=== PATIENT | male | born 1995 | race Caucasian/White ===

== ENCOUNTER 2016-08-12 17:47 | Inpatient (IN) | payer OTHER ==
[~2016-08-12] VITALS: Ht 180.3 cm; Wt 73.9 kg
[2016-08-12] MEDS ORDERED: LOPERAMIDE HCL 2 MG CAPSULE PO PRN ×2 (19:45)
[2016-08-12] MEDS ORDERED: TRAZODONE 50 MG TABLET PO PRN (19:45)
[2016-08-12] MEDS ORDERED: MAGNESIUM HYDROXIDE 30 ML LIQUID UDC PO PRN (19:45)
[2016-08-12] MEDS ORDERED: HYDROXYZINE PAMOATE 25 MG CAPSULE PO PRN (19:45)
[2016-08-12] MEDS ORDERED: DICYCLOMINE HCL 20 MG TABLET PO PRN (19:45)
[2016-08-12] MEDS ORDERED: ONDANSETRON 4 MG/2 ML VIAL IM PRN (19:45)
[2016-08-12] MEDS ORDERED: BUPRENORPHINE HCL 2 MG TAB.SUBL SL PRN (19:45)
[2016-08-12] MEDS ORDERED: MAG HYDROX/AL HYDROX/SIMETH 30 ML LIQUID UDC PO PRN (19:45)
[2016-08-12] MEDS ORDERED: MIRALAX 17 GM POWD.PACK PO PRN (19:45)
[2016-08-12] MEDS ORDERED: ACETAMINOPHEN 325 MG TABLET PO PRN (19:45)
[2016-08-12] MEDS ORDERED: METHOCARBAMOL 750 MG TABLET PO PRN (19:45)
--- NOTE | 2016-08-12 19:45 | NUR ---
Pre-Admission Note Explained unit protocols regarding medications and vital signs Q4H. Pt verbalizes understanding. [facility]/t Opiate dependence. BP 121/76, pulse 69, respirations 16, Spo2 97%, temp 98.1, no reports of pain 0/10, weight 163, height 5'11". Will continue with assessment upon arrival to the unit.
[2016-08-12 20:00] VITALS: BP 121/76
--- NOTE | 2016-08-12 20:00 | NUR ---
Admission Note Pt is a 21 year old male admitted to [facility] on 08/12/2016 for Opiate dependence, arrived on the unit at 1956, accompanied by SHOW OPERATIONS SUPERVISOR. Pt reports allergies to cat dander, denies seizure history. Pt was able to provide urine drug screen. Upon admission COWS 6, BP 121/76, pulse 69, respirations 16, Spo2 97%, temp 98.1, no reports of pain 0/10, weight 163, height 5'11". Pt reports his primary care provider is in [place], Dr. Sesay. Pt reports he is a smoker, smokes 1 pack of cigarettes/daily. Pt denies being hospitalized within the past 30 days. Substance abuse History is as follows: 1. Oxycodone 30mg of 8-10 pills/daily, last intake on 08/12/2016 of 60mg, at this rate for the past month. Pt reports he relapsed 1 months ago, Pt reports longest sobriety period was for 6 months from December 2015 to July 2016. Pt trigger for relapse is d/t "my anxiety and I had an argument with my girlfriend". Pt reports he has been admitted to 1 detox before, [facility], December 2015 for 2 months. When pt does not use, he reports s/s of "Anxiety, abdominal cramping, n/v, hot/cold chills, restlessness". PMH: Anxiety. Pt did not bring any medications from home, however reports taking Gabapentin 400mg and Trazodone 50mg at home, last taken about 2 months ago, as reported by pt. Upon assessment, pt presents with anxiety, reports mild body/joint aches, reports chills, teary eyes/runny nose noted, denies SOB/chest pain, face flushed, skin - clammy/sweaty, Pt denies SI/HI. Educational information provided and left at beside, pt oriented to room and encouraged to notify staff with any concerns. Safety measures in place, call light within reach, side rails up x2, bed locked and in low position. Will continue to monitor.
[2016-08-12 20:37] LABS: *AMPHETAMINE, URINE NEGATIVE (NEGATIVE); *BARBITURATE, URINE NEGATIVE (NEGATIVE); *CANNABINOID, URINE NEGATIVE (NEGATIVE); *COCCAINE, URINE NEGATIVE (NEGATIVE); *OPIATE, URINE POSITIVE (NEGATIVE); *PHENCYCLIDINE SCREEN,URINE NEGATIVE (NEGATIVE)
[2016-08-12] MEDS: CLONIDINE HCL 0.1 MG TABLET PO PRN (23:05)
--- NOTE | 2016-08-12 23:05 | NUR ---
PRN Administration Pt reported feeling anxious, chills throughout body, body/joint aches, runny nose/teary eyes, difficulty sleeping. Clonidine 0.1mg PRN and Trazodone 50mg PRN administered. Safety measures in place. Will continue to monitor.
[2016-08-12 23:09] LABS: ALANINE AMINOTRANSFERASE 17 U/L (16-63); ALKALINE PHOSPHATASE 44 U/L (50-136); ASPARTATE AMINOTRANSFERASE 17 U/L (15-37); BILIRUBIN,TOTAL 0.4 mg/dL (0.2-1.0); CARBON DIOXIDE 29 mmol/L (21-32); CHLORIDE 105 mmol/L (98-107); CREATININE 1.2 mg/dL (0.6-1.3); ETHANOL < 3 MG/DL (0-0); GLUCOSE 130 mg/dL (74-106); MAGNESIUM 2.1 mg/dL (1.8-2.4); TOTAL PROTEIN, SERUM 7.2 g/dL (6.4-8.2); UREA NITROGEN, BLOOD 19 mg/dL (7-18)
[2016-08-12] MEDS ORDERED: CLONIDINE HCL 0.1 MG TABLET ONE (23:09)
[2016-08-12] MEDS ORDERED: TRAZODONE 50 MG TABLET ONE (23:09)
[2016-08-12 23:10] LABS: BASOPHILS % (AUTO) 0.5 % (0.0-2.0); EOSINOPHILS # (AUTO) 0.3 K/uL (0.0-0.7); EOSINOPHILS % (AUTO) 3.5 % (0.0-7.0); HEMATOCRIT 42.3 % (40-50); HEMOGLOBIN 14.7 G/DL (14.0-18.0); LYMPHOCYTES # (AUTO) 2.6 K/UL (0.8-4.8); LYMPHOCYTES % (AUTO) 36.3 % (20.5-51.5); MEAN CORPUSCULAR HEMOGLOBIN 31.4 UUG (27.0-31.0); MEAN CORPUSCULAR HGB CONC 35 g/dL (32.0-37.0); MEAN CORPUSCULAR VOLUME 90.1 FL (82.0-92.0); MONOCYTES # (AUTO) 0.5 K/UL (0.1-1.30); MONOCYTES % (AUTO) 6.6 % (0.0-11.0); NEUTROPHILS # (AUTO) 3.8 K/UL (1.8-8.9); NEUTROPHILS % (AUTO) 53.1 % (38.5-71.5); PLATELET COUNT (AUTO) 224 K/UL (150-450); RED BLOOD CELL COUNT(AUTO) 4.69 MIL/UL (4.7-6.1); WHITE BLOOD COUNT (AUTO) 7.2 K/UL (4.0-11.2)
[2016-08-12 23:15] LABS: THYROID STIMULATING HORMONE 2.156 mIU/mL (0.358-3.740)
[2016-08-13] VITALS: BP 112/64
--- NOTE | 2016-08-13 | NUR ---
PRN Reassessment/Vital Signs BP 112/64, pulse 73, respirations 14, Spo2 96%, temp 97.9, no pain 0/10. COWS deferred d/t pt sleeping - to assess while pt is awake as ordered. Pt is sleeping, respirations even/unlabored, no s/s of acute distress. Safety measures in place. Will continue to monitor.
[2016-08-13] MEDS ORDERED: GABA-536 PO (01:32)
[2016-08-13] MEDS ORDERED: TRAZ-144 PO (01:32)
[2016-08-13 04:00] VITALS: BP 98/54
--- NOTE | 2016-08-13 04:00 | NUR ---
Vital Signs BP 98/54, pulse 66, respiration 14, SpO2 97%, temp 97.9, no pain 0/10 COWS deferred d/t pt sleeping - to assess while pt is awake as ordered. Safety measures in place. Will continue to monitor.
--- NOTE | 2016-08-13 07:00 | NUR ---
End of Shift Pt is a 21 year old male admitted for Opiate dependence, placed on 5 day Subutex taper. Pt reported using Oxycodone 30mg of 8-10 pills/daily, last intake on 08/12/2016 of 60mg, at this rate for the past month. PMH: Anxiety. Pt reports allergies to cat dander, regular diet, fall precautions and full code. During shift, pt presented with anxiety, chills throughout body, body/joint aches, runny nose/teary eyes, difficulty sleeping - Clonidine 0.1mg PRN and Trazodone 50mg PRN administered. COWS 6, Pt started Subutex taper today. Pt slept for 7 hours, intake of 1182 ml PO and voids x1. Safety measures in place, call light within reach, side rails up x2, bed locked and in low position. Endorsed to day shift nurse.
--- NOTE | 2016-08-13 07:58 | NUR ---
START OF SHIFT Received patient in bed AOx4. Patient states he feels a little better, was able to sleep last night but is still tired. Patient is to start 5 day Subutex taper this morning. PRN Trazodone and Clonidine given per night nurse.COWS 6 per night nurse. Encouraged patient to increase fluid intake. Encouraged patient to notify RN if S/S of W/D worsen. Encouraged attendance of groups and activities. Will provide safe and supportive environment. Will monitor.
[2016-08-13 08:00] VITALS: BP 99/61
[2016-08-13] MEDS ORDERED: TUBERCULIN,PURIF.PROT.DERIV. 5 TU/0.1 ML TEST ID ONE (09:00)
[2016-08-13] MEDS: MULTIVITAMINS,THERAPEUTIC TABLET PO SCH (09:07)
[2016-08-13] MEDS: GABAPENTIN 400 MG CAPSULE PO SCH ×3 (09:07→16:19)
[2016-08-13] MEDS: DOCUSATE SODIUM 250 MG CAPSULE PO SCH (09:07)
[2016-08-13] MEDS: BUPRENORPHINE HCL 2 MG TAB.SUBL SL SCH ×4 (09:09→20:55)
[2016-08-13] MEDS ORDERED: TRAZODONE 50 MG TABLET PO PRN (10:30)
[2016-08-13] MEDS: CLONIDINE HCL 0.1 MG TABLET PO PRN (11:18)
--- NOTE | 2016-08-13 11:19 | NUR ---
PRN MEDICATIONS Clonidine given per Dr. Kohli for patient c/o of hot/cold sweats and anxiousness. Vital signs stable. Will reassess
[2016-08-13 12:00] VITALS: BP 122/60
--- NOTE | 2016-08-13 12:00 | NUR ---
PRN REASSESSMENT Patient reports a decrease in anxiety. Will continue to monitor.
[2016-08-13 16:00] VITALS: BP 109/69
--- NOTE | 2016-08-13 18:36 | NUR ---
END OF SHIFT Patient started on 5 day Subutex taper this shift and tolerating well. Patient socialized self in room most of shift resting in bed. PRN Clonidine given this morning for anxiety. Last COWS 7. Patient noted with mild anxiety, stomach cramps, and hot/cold flashes. All needs have been met. Safety measures in place. Will pass shift report to oncoming nurse.
[2016-08-13] MEDS ORDERED: BUPRENORPHINE HCL 2 MG TAB.SUBL SL ONE (18:45)
--- NOTE | 2016-08-13 19:05 | NUR ---
Start of shift note Received report from day shift nurse. Pt is a 21 yo male, A+Ox4, presenting to [facility] for Opiate dependence. Pt has Allergies to Cats, is on Full Code status, and on Regular diet. Pt is on Fall precautions. Pt has HX of Anxiety. Pt is on 5 day Ativan taper, tolerated well. No s/s of distress noted at this time. Respirations even and unlabored. Will continue to monitor. Addendum: 08/14/16 at 0703 by JOSEPHINE GARCIA LVN Correction, 5 day SUBUTEX taper
[2016-08-13 20:56] VITALS: BP 115/61
[2016-08-13] MEDS: IBUPROFEN 600 MG TABLET PO PRN (21:21)
--- NOTE | 2016-08-13 21:21 | NUR ---
PRN Trazodone and Motrin Pt c/o inability to sleep and headache and requested for PRN Trazodone and Motrin. Medications given and tolerated well. Will reassess within 1 HR. Will continue to monitor.
--- NOTE | 2016-08-13 22:15 | NUR ---
PRN Trazodone and Motrin Reassessment Medications effective. No s/s of ASE/distress noted at this time. Patient is resting well in bed. respirations even and unlabored. Will continue to monitor.
[2016-08-14 00:16] VITALS: BP 103/48
[2016-08-14 04:14] VITALS: BP 96/57
--- NOTE | 2016-08-14 06:51 | NUR ---
End of shift note Pt is a 21 yo male, A+Ox4, presenting to [facility] for Opiate dependence. Pt has Allergies to Cats, is on Full Code status, and on Regular diet. Pt is on Fall precautions. Pt has HX of Anxiety. Pt is on 5 day Ativan taper, tolerated well. Pt was given PRN Trazodone and Motrin @2120. Pt slept for a total of 8 HRS. Last COWS: 2 @0400. No s/s of distress noted at this time. Respirations even and unlabored. Will endorse to day shift nurse. Addendum: 08/14/16 at 0703 by JOSEPHINE GARCIA LVN Correction, 5 day SUBUTEX taper
--- NOTE | 2016-08-14 07:00 | NUR ---
Start of Shift Notes: Patient received in his room. Alert and oriented x 4. Able to make needs known. Respirations even and unlabored. No SOB noted. Skin warm and dry to touch. Abdomen soft and non-distended. BS (+) in all 4 quadrants. No complains of nausea, vomiting, diarrhea or constipation noted. No complains of abdominal discomfort noted. Voids independently. Ambulatory ad ha with steady gait. Patient is a 21 year old male admitted for opiate dependence who was placed on a 5-day Subutex taper as ordered. No adverse reactions noted. Has past medical hx of anxiety. NKA. Full code. Regular diet. Educated patient on his current medication regimen and his current plan of care. Slept for 8 hours. Will continue to monitor closely.
[2016-08-14 08:00] VITALS: BP 96/57
[2016-08-14] MEDS: DOCUSATE SODIUM 250 MG CAPSULE PO SCH (08:57)
[2016-08-14] MEDS: BUPRENORPHINE HCL 2 MG TAB.SUBL SL SCH ×3 (08:57→21:19)
[2016-08-14] MEDS: GABAPENTIN 400 MG CAPSULE PO SCH ×2 (08:57→12:00)
[2016-08-14] MEDS: MULTIVITAMINS,THERAPEUTIC TABLET PO SCH (08:57)
[2016-08-14 12:00] VITALS: BP 119/84
--- NOTE | 2016-08-14 12:19 | NUR ---
Psych MD Visit: Patient was seen and examined by Dr. Leone with complains of difficulty staying asleep and that Trazodone 50 mg is not enough[address] Dr. Leone is in to enter orders. Orders noted and carried out. Patient was informed.
[2016-08-14] MEDS ORDERED: TRAZODONE 50 MG TABLET PO PRN (12:45)
--- NOTE | 2016-08-14 13:00 | NUR ---
Mid Shift Notes: Patient is in his room. Eating lunch. COWS 5. Will continue to monitor closely.
[2016-08-14 14:12] LABS: HEPATITIS B SURFACE AG Negative (Negative)
[2016-08-14 16:00] VITALS: BP 135/64
--- NOTE | 2016-08-14 18:52 | NUR ---
End of Shift Notes: Patient is a 21 year old male admitted for opiate dependence who was placed on a 5-day Subutex taper as ordered. No adverse reactions noted. Prior to admission, patient was using 8-10 tabs of 30 mg of Oxycodone. VS monitored closely. No significant abnormalities noted. Withdrawal symptoms were closely monitored. Initial COWS 7. Patient presented with chills, hot flashes, restlessness, nausea, anxiety and agitation. Last COWS 3. Per patient, Subutex has been helping him with his withdrawal symptoms. Patient was unable to participate in group and in activities due to his withdrawal symptoms. Oral fluids encouraged. All needs met and attended. Will continue to monitor closely.
--- NOTE | 2016-08-14 19:15 | NUR ---
Start of shift note Received report from day shift nurse. Pt is a 21 yo male, A+Ox4, presenting to [facility] for Opiate dependence. Pt has Allergies to Cats, is on Full Code status, and on Regular diet. Pt is on Fall precautions. Pt has HX of Anxiety. Pt is on 5 day Subutex taper, tolerated well. No s/s of distress noted at this time. Respirations even and unlabored. Will continue to monitor.
[2016-08-14 20:15] VITALS: BP 124/75
[2016-08-14] MEDS: DICYCLOMINE HCL 20 MG TABLET PO SCH (21:19)
[2016-08-14] MEDS: GABAPENTIN 300 MG CAPSULE PO SCH (21:19)
[2016-08-14] MEDS: TRAZODONE 100 MG TABLET PO PRN (21:19)
[2016-08-14] MEDS: BACLOFEN 10 MG TABLET PO SCH (21:19)
--- NOTE | 2016-08-14 21:22 | NUR ---
PRN Trazodone Pt c/o inability to sleep and requested for PRN Trazodone. Medication given and tolerated well. Will reassess within 1 HR. Will continue to monitor.
--- NOTE | 2016-08-14 22:20 | NUR ---
PRN Trazodone Reassessment Medication effective. Pt is resting well in bed. No s/s of ASE/distress noted at this time. Respirations even and unlabored. Will continue to monitor.
[2016-08-15 00:12] VITALS: BP 111/51
[2016-08-15 04:32] VITALS: BP 104/65
--- NOTE | 2016-08-15 06:44 | NUR ---
End of shift note Pt is a 21 yo male, A+Ox4, presenting to [facility] for Opiate dependence. Pt has Allergies to Cats, is on Full Code status, and on Regular diet. Pt is on Fall precautions. Pt has HX of Anxiety. Pt is on 5 day Subutex taper, tolerated well. Pt was given PRN Trazodone @2121. Pt slept for a total of 6 HRS. Last COWS: 1 @0400. No s/s of distress noted at this time. Respirations even and unlabored. Will endorse to day shift nurse.
[2016-08-15 08:00] VITALS: BP 106/62
--- NOTE | 2016-08-15 08:00 | NUR ---
START OF SHIFT NOTE Received pt alert awake oriented x4 admitted for Opiate dependence. Pt is cont with 5 days Subutex taper. PRN Trazodone given per night nurse. Last COWS-1 per night nurse. Pt slept for 6 hours. Educated regarding plan of care and medication regimen for the day with good verbal understanding. Encouraged pt to notify nurse if s/s of withdrawal worsen. Safety measures in place. call light kept with in reach, will continue to monitor closely.
[2016-08-15] MEDS: DICYCLOMINE HCL 20 MG TABLET PO SCH ×3 (08:13→22:24)
[2016-08-15] MEDS: BACLOFEN 10 MG TABLET PO SCH ×2 (08:13→14:39)
[2016-08-15] MEDS: DOCUSATE SODIUM 250 MG CAPSULE PO SCH (08:13)
[2016-08-15] MEDS: GABAPENTIN 300 MG CAPSULE PO SCH ×3 (08:13→22:24)
[2016-08-15] MEDS: MULTIVITAMINS,THERAPEUTIC TABLET PO SCH (08:13)
[2016-08-15] MEDS ORDERED: BUPRENORPHINE HCL 2 MG TAB.SUBL SL SCH (09:00)
--- NOTE | 2016-08-15 10:28 | NUR ---
Clinician encouraged client to attend groups today. Client declined and stated he just wants to drink a lot of fluids today.
[2016-08-15 12:00] VITALS: BP 102/60
[2016-08-15] MEDS ORDERED: BENZOCAINE/MENTH/CETYLPYRD LOZENGE MM PRN (12:45)
[2016-08-15] MEDS: BUPRENORPHINE HCL 2 MG TAB.SUBL SL SCH ×2 (14:39→22:25)
[2016-08-15 16:00] VITALS: BP 117/70
[2016-08-15] MEDS: ONDANSETRON ODT 4 MG TAB.RAPDIS SL PRN (17:08)
[2016-08-15] MEDS: IBUPROFEN 600 MG TABLET PO PRN (17:08)
--- NOTE | 2016-08-15 17:08 | NUR ---
PRN ZOFRAN/MOTRIN Patient c/o nausea not emesis and headache 06/11. Medicated patient with Zofran 4mg SL, and Motrin 600mg as ordered. Will cont to monitor and reassess.
--- NOTE | 2016-08-15 17:38 | NUR ---
ZOFRAN REASSESSMENT Patient reported medication effective, nausea improved. Will cont to monitor.
--- NOTE | 2016-08-15 18:08 | NUR ---
MOTRIN REASSESSMENT Patient reported headache decreased to 1/10. Motrin 600mg effective. Will cont to monitor.
--- NOTE | 2016-08-15 19:11 | NUR ---
END OF SHIFT NOTE Patient cont on 5 days Subutex taper tolerating well. Patient presents with nausea, and headache. patient given PRN Zofran/Motrin noted to be effective. Patient attend some groups and activities. Vital signs remained stable. COWS-3. Encouraged Po fluids as tolerated. All needs attended. All safety measures in place. Bed locked and in lowest position with call bishop within reach. Pt endorse to night nurse.
[2016-08-15 20:19] VITALS: BP 120/75
[2016-08-15] MEDS ORDERED: BACLOFEN 10 MG TABLET PO SCH (21:00)
[2016-08-15] MEDS: BACLOFEN 20 MG TABLET PO SCH (22:24)
[2016-08-15] MEDS: TRAZODONE 100 MG TABLET PO PRN (22:24)
--- NOTE | 2016-08-15 22:27 | NUR ---
PRN Trazodone Pt c/o inability to sleep and requested for PRN Trazodone. Medication given and tolerated well. Will reassess within 1 HR. Will continue to monitor.
--- NOTE | 2016-08-15 23:21 | NUR ---
PRN Trazodone Reassessment Medication effective. Pt is resting well in bed. No s/s of distress noted at this time. Respirations even and unlabored. Will continue to monitor.
[2016-08-16 00:19] VITALS: BP 92/46
[2016-08-16 04:40] VITALS: BP 92/46
--- NOTE | 2016-08-16 06:52 | NUR ---
End of shift note Pt is a 21 yo male, A+Ox4, presenting to [facility] for Opiate dependence. Pt has Allergies to Cats, is on Full Code status, and on Regular diet. Pt is on Fall precautions. Pt has HX of Anxiety. Pt is on 5 day Subutex taper, tolerated well. Pt was given PRN Trazodone @2227. Pt slept for a total of 7 HRS. Last COWS: 1 @0400. No s/s of distress noted at this time. Respirations even and unlabored. Will endorse to day shift nurse.
--- NOTE | 2016-08-16 07:30 | NUR ---
START OF SHIFT Received patient in bed AOx4. Patient states he feels pretty much better now, he just is still a little tired. He reports dry mouth. Patient continues on 5 day Subutex taper this morning. PRN Trazodone given per night nurse and patient was able to sleep 7 hours. Last COWS 1 per night nurse. Encouraged patient to increase fluid intake. Encouraged patient to notify RN if S/S of W/D worsen. Encouraged attendance of groups and activities. Will provide safe and supportive environment. Will monitor.
[2016-08-16 08:00] VITALS: BP 110/63
[2016-08-16] MEDS: DOCUSATE SODIUM 250 MG CAPSULE PO SCH (08:11)
[2016-08-16] MEDS: GABAPENTIN 300 MG CAPSULE PO SCH ×3 (08:11→21:19)
[2016-08-16] MEDS: BUPRENORPHINE HCL 2 MG TAB.SUBL SL SCH ×3 (08:11→21:20)
[2016-08-16] MEDS: DICYCLOMINE HCL 20 MG TABLET PO SCH ×3 (08:11→21:19)
[2016-08-16] MEDS: MULTIVITAMINS,THERAPEUTIC TABLET PO SCH (08:11)
[2016-08-16] MEDS: BACLOFEN 20 MG TABLET PO SCH ×3 (08:11→21:19)
[2016-08-16 12:00] VITALS: BP 118/73
--- NOTE | 2016-08-16 13:41 | NUR ---
Therapist encouraged client to continue his group attendance and participation. Client stated he would continue to attend group therapy daily.
[2016-08-16 16:00] VITALS: BP 125/74
--- NOTE | 2016-08-16 18:39 | NUR ---
END OF SHIFT Patient continues on 5 day Subutex taper and tolerating well. Patient socialized with peers around unit and attended groups and activities. No PRNS given during shift. Last COWS 2. Patient stated readiness for discharge. All needs have been met. Safety measures in place. Will pass shift report to oncoming nurse.
--- NOTE | 2016-08-16 19:15 | NUR ---
Start of Shift Note: Patient is a 21 y/o male admitted on 08/12/16 for Opiate dependence. Patient reported using Oxycodone 240-300mg daily for 1 month. Patient has Anxiety. No seizure history noted. Patient is on a regular diet with allergies to cat dander. Full Code status. Skin intact. Patient is on a 5-day Subutex taper and tolerating well. Last COWS 2. No PRN medications given during day shift. Patient is alert & oriented x4. No shortness of breath noted. Respiration even & unlabored. Abdomen soft & non-distended. Nausea noted with no episode of vomiting. Patient denies pain/discomfort. Patient denies chills & sweating. No tremors noted. Safety precautions are in place. Bed locked in lowest position. Both side rails up. Call light within pts reach. Will continue to monitor patient.
[2016-08-16 20:00] VITALS: BP 128/73
[2016-08-16] MEDS: TRAZODONE 100 MG TABLET PO PRN (21:28)
--- NOTE | 2016-08-16 21:28 | NUR ---
PRN Trazodone & Zofran Patient complains of slight nausea with no episode of vomiting noted. Patient requested for medication to help him sleep. PRN Zofran and Trazodone administered as ordered. Will continue to monitor.
[2016-08-16] MEDS: ONDANSETRON ODT 4 MG TAB.RAPDIS SL PRN (21:29)
--- NOTE | 2016-08-16 22:28 | NUR ---
PRN Reassessment Patient still awake at this time. Patient verbalized improved nausea. Patient lying in bed with no s/s of distress. Patient appears calm and comfortable. Will continue to monitor patient.
[2016-08-17] VITALS (7 sets, daily range): BP systolic 90–133; BP diastolic 46–82
--- NOTE | 2016-08-17 07:28 | NUR ---
End of Shift Note: Patient had an uneventful night. Patient remained stable and Vitals remains WNL. Pt remained compliant with medications, treatment plan and plan of care. Pt continues on his Subutex taper. Last COWS is 5. Pt was given PRN Zofran and Trazodone and were effective. Pt still asleep at this time with no s/s of distress. No shortness of breath noted. Pt slept for a total of 8 hours. Pt consumed 1500ml of fluids. Voided 6x with no bowel movement. All needs attended & met. Safety measures in place. Will endorse pt to day shift nurse.
--- NOTE | 2016-08-17 07:40 | NUR ---
START OF SHIFT Rcvd endorsement from ongoing nurse,client is in bed AOx4. Client states he feels rested for the first time since admission. He reports some anxiety and decrease in appetite and dry mouth. Last dose of 5 day Subutex taper this am. PRN Trazodone for inability to sleep, Vistaril for anxiety, noted effective, client slept 8 hours. Last COWS 4 @ 2000. Encouraged client to increase fluid intake to facilitate detox. Encouraged attendance of group therapy for skills to maintain sobriety. Call light within reach. Bed in lowest/locked position. Will continue to monitor.
[2016-08-17] MEDS ORDERED: BUPRENORPHINE HCL 2 MG TAB.SUBL SL SCH (09:00)
[2016-08-17] MEDS: GABAPENTIN 300 MG CAPSULE PO SCH ×3 (09:40→21:37)
[2016-08-17] MEDS: DICYCLOMINE HCL 20 MG TABLET PO SCH ×3 (09:41→21:37)
[2016-08-17] MEDS: DOCUSATE SODIUM 250 MG CAPSULE PO SCH (09:41)
[2016-08-17] MEDS: MULTIVITAMINS,THERAPEUTIC TABLET PO SCH (09:41)
[2016-08-17] MEDS: BACLOFEN 20 MG TABLET PO SCH ×3 (09:41→21:37)
[2016-08-17] MEDS: IBUPROFEN 600 MG TABLET PO PRN ×2 (12:23→23:17)
--- NOTE | 2016-08-17 12:23 | NUR ---
PRN Motrin 600mg Client reports headache 5/10 frontal area, does not radiate. He denies dizziness. Encouraged to increase fluid intake as tolerated, he verbalized understanding. Call light within reach.
--- NOTE | 2016-08-17 13:23 | NUR ---
Reassessment PRN Motrin 600mg Client reports relief from headache 2/10 frontal area, but tolerable. He was able to join yoga. Call light within reach.
[2016-08-17 15:15] LABS: *AMPHETAMINE, URINE NEGATIVE (NEGATIVE); *BARBITURATE, URINE NEGATIVE (NEGATIVE); *CANNABINOID, URINE NEGATIVE (NEGATIVE); *COCCAINE, URINE NEGATIVE (NEGATIVE); *OPIATE, URINE NEGATIVE (NEGATIVE); *PHENCYCLIDINE SCREEN,URINE NEGATIVE (NEGATIVE)
--- NOTE | 2016-08-17 15:25 | NUR ---
PRN Tylenol 650mg Client reports headache 6/10 frontal area, does not radiate. He denies dizziness. Encouraged to increase fluid intake as tolerated, he verbalized understanding. Call light within reach.
--- NOTE | 2016-08-17 16:25 | NUR ---
Reassessment PRN Tylenol 650mg Client reports relief from headache 2/10 frontal area, but tolerable. He was able to go to group therapy. Call light within reach
[2016-08-17] MEDS ORDERED: BACL20TA PO (18:44)
[2016-08-17] MEDS ORDERED: TRAZ-147 PO (18:44)
[2016-08-17] MEDS ORDERED: DICY20TA28 PO (18:44)
[2016-08-17] MEDS ORDERED: GABA-534 PO (18:44)
[2016-08-17] MEDS ORDERED: IBUP-1955 PO (18:44)
--- NOTE | 2016-08-17 19:00 | NUR ---
END OF SHIFT Patient completed 5 day Subutex taper and tolerating well. Patient socialized with peers around unit and attended groups and activities. PRN Motrin and Tylenol for CARTER, noted effective. Last COWS 3. Patient stated readiness for discharge. All needs have been met. Safety measures in place. Will pass shift report to oncoming nurse.
--- NOTE | 2016-08-17 19:15 | NUR ---
Start of Shift Note: Patient is a 21 y/o male admitted on 08/12/16 for Opiate dependence. Patient reported using Oxycodone 240-300mg daily for 1 month. Patient has Anxiety. No seizure history noted. Patient is on a regular diet with allergies to cat dander. Full Code status. Skin intact. Patient completed his Subutex taper and he is scheduled to be discharge tomorrow. Urine drug screen collected and resulted. Last COWS 3. Pt was given PRN Motrin & Tylenol. Patient is alert & oriented x4. No shortness of breath noted. Respiration even & unlabored. Abdomen soft & non-distended. No nausea noted. Patient complains of 3/10 neck pain & stomach cramps. Patient denies chills & sweating. No tremors noted. Safety precautions are in place. Bed locked in lowest position. Both side rails up. Call light within pts reach. Will continue to monitor patient.
[2016-08-17] MEDS: TRAZODONE 100 MG TABLET PO PRN (23:17)
--- NOTE | 2016-08-17 23:17 | NUR ---
PRN Motrin & Trazodone Patient complain of mild headache. Patient also requesting for medication to help him sleep. PRN Motrin & Trazodone administered as ordered. Will reassess in 1 hour. Will continue to monitor patient.
[2016-08-18] VITALS: BP 105/72
--- NOTE | 2016-08-18 00:17 | NUR ---
PRN Reassessment Patient asleep in bed and appears comfortable. No s/s of distress noted. No facial grimacing noted. Safety measures in place. Will continue to monitor patient.
--- NOTE | 2016-08-18 07:29 | NUR ---
End of Shift Note: Patient had an uneventful night. Patient remained stable and Vitals remains WNL. Pt remained compliant with medications, treatment plan and plan of care. Pt completed his taper and is scheduled to be discharge today. Urine drug screen collected and resulted. Last COWS is 3. Pt was given PRN Motrin for headache and Trazodone for sleep and were effective. Pt still asleep at this time with no s/s of distress. No shortness of breath noted. Pt slept for a total of 7 hours. Pt consumed 2292 ml of fluids. Voided 4x with no bowel movement. All needs attended & met. Safety measures in place. Will endorse pt to day shift nurse.
--- NOTE | 2016-08-18 07:37 | NUR ---
START OF SHIFT Received report from nurse. 21 year old male patient admitted on 08/12/16 for opiate dependence. Pt has completed 5 day Subutex taper and is medically cleared for discharge. Reports hx of anxiety, allergies to cat dander, full code and regular diet. Denies hx of seizures. PPD test negative. PRN Trazodone and Motrin was administered as ordered. Most recent COWS was 3 at [id number]. Pt is resting in bed at this time. Ambulates with a steady gait, no overnight events. Pt acknowledges discharge and does not present with s/s of acute withdrawal. All needs met at this time. Will continue to monitor.
[2016-08-18 08:08] VITALS: BP 109/70
[2016-08-18] MEDS: BACLOFEN 20 MG TABLET PO SCH (08:24)
[2016-08-18] MEDS: GABAPENTIN 300 MG CAPSULE PO SCH (08:24)
[2016-08-18] MEDS: DICYCLOMINE HCL 20 MG TABLET PO SCH (08:24)
[2016-08-18] MEDS: MULTIVITAMINS,THERAPEUTIC TABLET PO SCH (08:24)
[2016-08-18] MEDS: DOCUSATE SODIUM 250 MG CAPSULE PO SCH (08:24)
--- NOTE | 2016-08-18 09:25 | NUR ---
D/C NOTES Pt is A/O x4. V/S remain WNL. Pt denies SI/HI or hallucinations. Pt shows no s/s of acute withdrawal at this time, and is stable. COWS is 3. has medically cleared pt for d/c. Education on Hepatitis C, smoking cessation and medication side effects provided. Pt verbalizes understanding. All pt belongings are in belonging bag, including prescriptions, pt did not have any home medications. Refuses PNU vaccination. Pt is being accompanied by BABY STROLLER RENTAL CLERK at this time to be transported to rehab. All needs met.
== END 2016-08-18 09:25 | disposition home or self-care (01) | DRG 895 ==
LOC: SRC 18:57
PROVIDERS: ADMIT Internal Medicine; ATTEND Internal Medicine
PROC: HZ2ZZZZ Detoxification Services for Substance Abuse Treatment (ICD-10-PCS; principal; 2016-08-12)
PROC: HZ31ZZZ Individual Counseling for Substance Abuse Treatment, Behavioral (ICD-10-PCS; 2016-08-13)
PROC: HZ41ZZZ Group Counseling for Substance Abuse Treatment, Behavioral (ICD-10-PCS; 2016-08-15)
DX: F11.23 Opioid dependence with withdrawal (principal); F17.210 Nicotine dependence, cigarettes, uncomplicated; G47.00 Insomnia, unspecified; Z82.49 Family history of ischemic heart disease and other diseases of the circulatory system; Z79.899 Other long term (current) drug therapy; E86.0 Dehydration; F41.9 Anxiety disorder, unspecified
CPT/HCPCS: 36415; 70030-TC; 80307; 80361; 83735; 84443; 85025; 86580; 86592; 86705; 86803; 87340; 87806; A4663; G0480; Q0162